=== PATIENT | male | born 1965 | race Caucasian/White ===

== ENCOUNTER 2018-11-21 10:18 | Emergency (ER) | payer SELFPAY ==
--- NOTE | 2018-11-21 10:57 | ED Physician Chart ---
ED Chief Complaint/HPI - Patient Information Date Seen:: 11/21/18 Time Seen:: 10:30 Chief Complaint:: using q tip History of Present Illness:: today concerned about piece of material in ear pulling on ear caused pain Allergies:: Allergies Allergy/AdvReac Type Severity Reaction Status Date / Time No Known Allergies Allergy Verified 11/21/18 10:27 Vitals:: Vital Signs - 8 hr 11/21/18 10:28 Temp 96.8 F HR 62 RR 18 BP 127/79 O2 Sat % 99 Historian:: Patient Review:: Nurse's Note Reviewed ED Review of Systems - Review of Systems General/Constitutional: No fever ENT: Other (showed me picture on phone of object outer canal when otiscope placed was pushed to side did not see intially for discussed reasons when pulled on had facial wincing will rx as otitis externa) ED Past Medical History - Past Medical History Past Medical History: No significant medical hx Family Medical History - Family Member Mother History Unknown: Yes ED Physical Exam - Physical Examination General/Constitutional: Awake (traction pain equivocal 3/5), Well-developed, well-nourished, Alert, Non-toxic appearing, Ambulatory Head: Atraumatic Eyes: Lids, conjuctiva normal Skin: Nl inspection Neck: Nontender, Full ROM w/o pain, No JVD, No nuchal rigidity Respiratory: Nl effort/Exclusion Cardio Vascular: RRR GI: No tenderness/rebounding/guarding Extremities: No tenderness or effusion Neuro/Psych: Alert/oriented Misc: Normal back ED Labs/Radiology/EKG Results - Lab Results Results: patient produced picture of object in 2nd part exam explained needed to have ent do any manipulation if early otitis externa can make worse by er manipulation patient unhappy because did not explain to him what was material disbelieve problem was early infection and traction pain would highly unlucky fro material in ear refused to take rx for vo hoa hc septra ds toradol and reccomendation for ent eval ED Septic Shock - . Is Septic Shock (SBP<90, OR Lactate>4 mmol\L) present?: No - <6hrs of presentation: Vital Signs: Vital Signs - 8 hr 11/21/18 10:28 Temp 96.8 F HR 62 RR 18 BP 127/79 O2 Sat % 99 ED Reassessment (Disposition) - Reassessment Reassessment Condition:: Unchanged (pt states did not trust my evaluation) - Aftercare/Follow up Instructions Aftercare/Follow-Up Instructions:: Counseled pt regarding lab results/diagnosis & need follow up - Patient Disposition Discharge/Transfer:: Elope/AWOL Condition at Disposition:: Stable
== END 2018-11-21 10:57 | disposition left against medical advice (07) ==
LOC: ER 10:18
DX: H92.09 Otalgia, unspecified ear (principal)